=== PATIENT | male | born 1985 ===

== ENCOUNTER → 2018-02-25 19:05 | Outpatient (REF) | payer OTHER, SELFPAY ==
[2018-03-01 13:45] LABS: QuantiFERON TB NEGATIVE (Negative)
[2018-03-02 13:13] LABS: Rapid Plasma Reagin NON-REACTIVE
== END ==
LOC: LAB 19:05
PROVIDERS: Visit Provider Family Medicine Adult Medicine
DX: Z00.00 Encounter for general adult medical examination without abnormal findings (principal)
CPT/HCPCS: 86480; 86592; 87591